=== PATIENT | male | born 1980 | race Hispanic/Latino ===

== ENCOUNTER 2019-06-22 01:27 | Emergency (ER) | payer OTHER ==
[2019-06-22] MEDS ORDERED: LIDOCAINE HCL 2% JELLY 5 ML ONE (01:53)
[2019-06-22] MEDS ORDERED: LIDOCAINE HCL 1% 20 ML VIAL ONE (01:54)
[2019-06-22] MEDS ORDERED: CEPHALEXIN 500 MG CAPSULE ONE (04:11)
== END 2019-06-22 04:29 | disposition home or self-care (01) ==
LOC: EDH 01:27
DX: S01.511A Laceration without foreign body of lip, initial encounter (principal); W18.39XA Other fall on same level, initial encounter; Y93.01 Activity, walking, marching and hiking; Y92.148 Other place in prison as the place of occurrence of the external cause; Y99.8 Other external cause status; S62.637A Displaced fracture of distal phalanx of left little finger, initial encounter for closed fracture; I10 Essential (primary) hypertension
CPT/HCPCS: 12034; 12054; 29130; 73140